=== PATIENT | male | born 1995 | race Caucasian/White ===

== ENCOUNTER 2016-05-18 10:53 | Emergency (ER) | payer OTHER ==
[~2016-05-18] VITALS: Ht 170.2 cm; Wt 72.6 kg
[2016-05-18 11:00] VITALS: BP_SYST 153
[2016-05-18] MEDS ORDERED: ACETAMINOPHEN 500 MG TABLET PO ONE (11:30)
[2016-05-18] MEDS ORDERED: KETOROLAC TROMETHAMINE 30 MG VIAL IVP ONE (12:30)
[2016-05-18] MEDS ORDERED: PROCHLORPERAZINE EDISYLATE 10 MG/2 ML VIAL IVP ONE (12:30)
[2016-05-18] MEDS ORDERED: NACL 0.9% 1,000 ML IV ONE (12:30)
[2016-05-18] MEDS ORDERED: DEXAMETHASONE SOD PHOSPHATE 10 MG/ML VIAL IVP ONE (12:30)
[2016-05-18 14:30] VITALS: BP_SYST 138
== END 2016-05-18 14:30 | disposition home or self-care (01) ==
LOC: SED 10:53
DX: S01.111A Laceration without foreign body of right eyelid and periocular area, initial encounter (principal); S40.811A Abrasion of right upper arm, initial encounter; L03.211 Cellulitis of face; R03.0 Elevated blood-pressure reading, without diagnosis of hypertension; Y04.0XXA Assault by unarmed brawl or fight, initial encounter; Y93.89 Activity, other specified; Y92.89 Other specified places as the place of occurrence of the external cause; Y99.8 Other external cause status
CPT/HCPCS: 70450; 70486; 96374; 96375; 99284; J0780; J1100; J1885; J7030